=== PATIENT | female | born 1975 | race African-American/Black ===

== ENCOUNTER 2020-01-11 16:27 | Emergency (ER) | payer MEDICARE, MEDICAID ==
[2020-01-11] MEDS ORDERED: Lidocaine 1% w/Epinephrine 1:100K 30 ML VIAL ONE (16:43)
[2020-01-11] MEDS ORDERED: Bacitracin 1 PK ONE (17:24)
== END 2020-01-11 17:37 | disposition home or self-care (01) ==
LOC: NAV ERS 16:27
DX: S01.81XA Laceration without foreign body of other part of head, initial encounter (principal); F20.9 Schizophrenia, unspecified; F31.9 Bipolar disorder, unspecified; Z79.899 Other long term (current) drug therapy; W01.190A Fall on same level from slipping, tripping and stumbling with subsequent striking against furniture, initial encounter
CPT/HCPCS: 12011; 90471; J2001